=== PATIENT | female | born 1980 | race Caucasian/White ===

== ENCOUNTER 2017-12-22 14:16 | Emergency (ER) | payer OTHER, MEDICAID ==
[~2017-12-22] VITALS: Ht 165.1 cm; Wt 131.1 kg
[~2017-12-22 14:16] MED LIST: ACYCLOVIR 800800 M1 PO; ALPRAZOLAM; APAP500; BACTRIM DS TAB1 EACH PO; CARAFATE1 GM PO; CELEXA; CELEXA20 MG PO; CINNAMON PLUS1 EACH PO; DIABETIC VITAM1 EACH PO; FISH OIL 1,001000 M2 PO; IBUPROFEN 800800 MG PO; METFORMIN HCL500 MG PO; NAPROSYN500 MG; NAPROSYN500 MG PO; NEURONTIN 300300 M1 PO; NORCO 5-325 TA1 EACH PO; ONDANSETRON HCL4 M2 PO; OTC PROBIOTIC; TRAMADOL 50 MG50 MG PO; UNICOMPLEX M TA1 TA1 PO; VICODIN; VICODIN 5-5001 EACH PO; ZYRTEC10 M2 PO
[2017-12-22] MEDS ORDERED: NORFLEX100 MG PO (16:25)
[2017-12-22] MEDS ORDERED: IBUPROFEN 600600 M1 PO (16:25)
[2017-12-22 16:35] VITALS: BP 176/78
== END 2017-12-22 16:36 | disposition home or self-care (01) ==
LOC: M.ERS 14:16
DX: S46.912A Strain of unspecified muscle, fascia and tendon at shoulder and upper arm level, left arm, initial encounter (principal); S00.83XA Contusion of other part of head, initial encounter; S00.81XA Abrasion of other part of head, initial encounter; S13.4XXA Sprain of ligaments of cervical spine, initial encounter; F32.9 Major depressive disorder, single episode, unspecified; E11.9 Type 2 diabetes mellitus without complications; Z88.8 Allergy status to other drugs, medicaments and biological substances; Z88.1 Allergy status to other antibiotic agents; Z88.6 Allergy status to analgesic agent; Z88.5 Allergy status to narcotic agent; F17.210 Nicotine dependence, cigarettes, uncomplicated; V49.40XA Driver injured in collision with unspecified motor vehicles in traffic accident, initial encounter; Y93.I9 Activity, other involving external motion; Y92.89 Other specified places as the place of occurrence of the external cause; Y99.8 Other external cause status